=== PATIENT | female | born 1955 | race Caucasian/White ===

== ENCOUNTER → 2017-01-24 | Day surgery (SDC) | payer OTHER ==
[~2017-01-24] VITALS: Ht 162.6 cm; Wt 66.3 kg
== END | disposition home or self-care (01) ==
LOC: FAS 10:34
PROVIDERS: Surgery
DX: K22.10 Ulcer of esophagus without bleeding (principal); K29.50 Unspecified chronic gastritis without bleeding; K29.80 Duodenitis without bleeding; Z80.0 Family history of malignant neoplasm of digestive organs; I10 Essential (primary) hypertension; Z90.49 Acquired absence of other specified parts of digestive tract; Z88.5 Allergy status to narcotic agent; Z88.1 Allergy status to other antibiotic agents
CPT/HCPCS: 36415; 80048; 88305; 88312; J2704

== ENCOUNTER → 2020-09-03 | Day surgery (SDC) | payer MEDICARE, OTHER ==
[~2020-09-03] MED LIST: ALLERGY MULTI-1 EACH PO; BISOPROLOL-HCT1 EAC1 PO; BUSPIRONE HCL15 MG PO; BUSPIRONE HCL7.5 MG PO; CALCIUM + D SO1 EACH PO; ESTER-C 500 MG1 EACH PO; K-DUR20 MEQ PO; LEFLUNOMIDE10 MG PO; MELATONIN5 M2 PO; PRILOSEC20 MG PO; PROBIOTIC & AC1 EACH PO; VITAMIN B125000 MCG IM; VITAMIN D1000 UNI1 PO; WELLBUTRIN XL150 MG PO; WELLBUTRIN75 MG PO
== END | disposition home or self-care (01) ==
LOC: FAS 06:50
DX: K52.9 Noninfective gastroenteritis and colitis, unspecified (principal); K31.7 Polyp of stomach and duodenum; K44.9 Diaphragmatic hernia without obstruction or gangrene; K29.50 Unspecified chronic gastritis without bleeding; K57.30 Diverticulosis of large intestine without perforation or abscess without bleeding; I10 Essential (primary) hypertension; M32.9 Systemic lupus erythematosus, unspecified; R09.89 Other specified symptoms and signs involving the circulatory and respiratory systems; F41.8 Other specified anxiety disorders; K21.9 Gastro-esophageal reflux disease without esophagitis; M06.9 Rheumatoid arthritis, unspecified; Z88.5 Allergy status to narcotic agent; Z88.1 Allergy status to other antibiotic agents; Z90.49 Acquired absence of other specified parts of digestive tract; Z80.0 Family history of malignant neoplasm of digestive organs
CPT/HCPCS: 88305; J2704; J7120